=== PATIENT | male | born 1995 | race Caucasian/White ===

== ENCOUNTER → 2025-02-13 | Outpatient (CLI) | payer SELFPAY ==
--- NOTE | 2025-02-13 07:15 | EKG12_ITS ---
Test Reason : CP/HEAVINESS Blood Pressure : */* mmHG Vent. Rate : 70 BPM Atrial Rate : 70 BPM P-R Int : 134 ms QRS Dur : 94 ms QT Int : 364 ms P-R-T Axes : 54 54 28 degrees QTcB Int : 393 ms Normal sinus rhythm Normal ECG No previous ECGs available Confirmed by KALI SARMIENTO, LUCIANO ([id number]), multimedia editor WILBERTO CARDENAS ([id number]) on 02/14/2025 1:14:29 PM Referred By: Moriah Thakur Confirmed By: LUCIANO BASS MD
== END | disposition home or self-care (01) ==
PROVIDERS: PCP Nurse Practitioner Family; Referring Provider Nurse Practitioner Family; Visit Provider Nurse Practitioner Family
DX: R07.9 Chest pain, unspecified (principal)
CPT/HCPCS: 93005

== ENCOUNTER → 2025-03-05 | Outpatient (CLI) | payer SELFPAY, OTHER ==
--- NOTE | 2025-03-05 06:03 | ECHOD_ITS ---
Reason For Study Reason For Study: CHEST PAIN Procedure This was a 2D Doppler, Color Flow transthoracic echocardiogram. Exam performed in department. Left Ventricle Normal LV size. Left ventricular systolic function is normal. The left ventricular ejection fraction is 60 %. No regional wall motion abnormalities noted. Right Ventricle Normal RV size. Normal systolic function. Atria Normal left atrium. Normal right atrium. Bubble contrast study is negative for PFO/ASD. Mitral Valve Normal mitral valve. Tricuspid Valve Normal tricuspid valve. Mild tricuspid valve insufficiency. Aortic Valve Normal aortic valve. Trisinus/trileaflet aortic valve. Pulmonic Valve Normal pulmonic valve. Great Vessels Normal aortic root. The pulmonary artery is normal size. Inferior vena cava collapse with respiration. Pericardium/Pleural No pericardial effusion. Medication 22 gauge I.V. with prn adaptor inserted into right arm. Performed a rapid injection of agitated mix of 9 cc saline and 1cc air to assess for atrial septal defect. MMode/2D Measurements & Calculations LVIDd: 5.3 cm IVSd: 0.95 cm LVOT diam: 1.9 cm LVIDs: 3.2 cm LVPWd: 0.80 cm RVDd: 3.9 cm FS: 40.2 % LVOT area: 3.0 cm2 asc Aorta Diam: 3.2 cm LAV(MOD-bp): 36.0 ml LVAd ap4: 25.7 cm2 LAV(MOD-bp) Indexed: 17.6 ml/m2 LVLd ap4: 7.6 cm LAV(MOD-sp2): 33.1 ml EDV(MOD-sp4): 70.4 ml LAV(MOD-sp4): 33.7 ml EDV(sp4-el): 73.2 ml LVAs ap4: 15.2 cm2 LVLs ap4: 6.6 cm ESV(MOD-sp4): 30.0 ml ESV(sp4-el): 29.9 ml EF(MOD-sp4): 57.4 % EF(sp4-el): 59.2 % LVAd ap2: 25.3 cm2 SV(MOD-sp4): 40.4 ml SV(MOD-sp2): 43.0 ml LVLd ap2: 8.3 cm SI(MOD-sp4): 19.8 ml/m2 SI(MOD-sp2): 21.1 ml/m2 EDV(MOD-sp2): 66.9 ml EDV(sp2-el): 65.9 ml LVAs ap2: 13.3 cm2 LVLs ap2: 6.2 cm ESV(MOD-sp2): 23.9 ml ESV(sp2-el): 24.0 ml EF(MOD-sp2): 64.3 % SV(sp4-el): 43.4 ml Ao sinus diam: 3.[address] Junction: 2.2 cm LA dimension(2D): 3.7 cm LA A4 area: 14.8 cm2 RA A4 area: 10.7 cm2 TAPSE: 1.9 cm Time Measurements MV dec time: 0.15 sec Doppler Measurements & Calculations MV E max ronnie: 101.6 cm/sec Lat Peak E' Ronnie: 15.2 cm/sec Med Peak E' Ronnie: 15.4 cm/sec MV A max ronnie: 54.3 cm/sec E/E' lat: 6.7 E/E' med: 6.6 MV E/A: 1.9 MV dec slope: 675.7 cm/sec2 Ao V2 max: 115.0 cm/sec LV V1 max: 107.1 cm/sec Ao max P.3 mmHg LV V1 max P.6 mmHg Ao V2 mean: 74.8 cm/sec LV V1 mean P.8 mmHg Ao mean P.7 mmHg LV V1 mean: 77.9 cm/sec Ao V2 VTI: 23.7 cm LV V1 VTI: 23.3 cm AV (velocity ratio): 0.99 DEVIN(I,D): 2.9 cm2 DEVIN(V,D): 2.8 cm2 SV(LVOT): 69.1 ml PA V2 max: 79.1 cm/sec TR max ronnie: 161.1 cm/sec TR max P.4 mmHg ECHO/Echo Complete Interpretation Summary Normal LV size. Left ventricular systolic function is normal. The left ventricular ejection fraction is 60 %. Bubble contrast study is negative for PFO/ASD. Ordering Physician: Moriah Thakur Referring Physician: Moriah Thakur Performed By: Josefina Hernandez RDCS
--- NOTE | 2025-03-05 14:24 | STRESSREP ---
Stress Test Report Exercise myocardial perfusion stress test. 29-year-old with a history of chest pain Stress protocol: Resting EKG demonstrates normal sinus rhythm with a rate of 64 bpm resting blood pressure is 108/70 mmHg. The patient exercised according to the regular Evan protocol for a total duration of 12 minutes attaining a maximum heart rate of 181 bpm which was 95% of maximum predicted heart rate; the maximum workload was 13.4 metabolic equivalents. At rest there were no ST or T wave changes noted to suggest ischemia and at peak exercise upsloping ST changes only were noted which did not meet the criteria for ischemia. No clinical angina was noted the test was terminated due to the target heart rate being achieved/fatigue. The peak blood pressure was 158/60 mmHg. Rate-pressure product was 28,600. Myocardial perfusion protocol. 12 mCi of technetium 99m sestamibi was injected at rest. The patient exercised according to regular Evan protocol for total duration of 12 minutes and at peak exercise 34.2 mCi of technetium 99m sestamibi was injected stress images were obtained stress and rest images were reconstructed in comparing the short axis vertical long and horizontal long axis. Gated images were also obtained. Perfusion SPECT analysis: Review of the stress images demonstrate normal uptake of tracer noted in all areas of the myocardium. The resting images similarly demonstrate normal uptake of tracer noted in all areas of the myocardium. No areas of reversibility are noted to suggest ischemia no previous infarct was noted. Gated SPECT analysis: The gated ejection fraction is 65%. Conclusion: Normal exercise myocardial perfusion stress test at a high workload Preserved ejection fraction.
== END | disposition home or self-care (01) ==
LOC: CVS 06:01
PROVIDERS: PCP Nurse Practitioner Family; Referring Provider Nurse Practitioner Family; Visit Provider Nurse Practitioner Family
DX: R07.9 Chest pain, unspecified (principal)
CPT/HCPCS: 78452; 93017; 93306; A9500; A4216